=== PATIENT | female | born 1990 | race Caucasian/White ===

== ENCOUNTER 2020-04-27 08:49 | Day surgery (SDCO) | payer OTHER ==
[~2020-04-27 08:49] MED LIST: BACTRIM DS TAB1 EACH PO; KEFLEX250 MG PO; PROMETHEGA12.5 MG/SU PR; ZOFRAN4 MG PO
[2020-04-27 09:49] LABS: BASOPHIL 0.3 % (0-2); EOSINOPHIL 0.4 % (0-5); HCT 46.8 % (37.0-47.0); HGB 14.9 g/dl (12.5-16.0); LYMPHOCYTE 8.8 % (15-48); MCH 26.9 pg (25.0-31.0); MCHC 31.8 g/dL (32.0-36.0); MCV 84.5 fL (78.0-100.0); MONOCYTE 4.2 % (0-12); MPV 9.7 fL (6.0-9.5); NRBC 0; PLT 385 K/uL (150-400); RBC 5.54 M/uL (4.20-5.40); RDW 12.9 % (11.5-14.0)
[2020-04-27 09:59] LABS: NEUTROPHIL 85.8 % (41-80)
[2020-04-27 10:01] LABS: ALBUMIN 3.7 g/dL (3.4-5.0); BILIRUBIN - TOTAL 0.3 mg/dL (0.2-1.0); BUN/CREAT RATIO (CALC) 17.3 RATIO; CREATININE 0.81 mg/dL (0.51-0.95); GLOBULIN (CALCULATION) 4.5 g/dL; POTASSIUM 4.3 mmol/L (3.5-5.1); TOTAL PROTEIN 8.2 g/dL (6.4-8.2)
[2020-04-27 10:33] LABS: BILIRUBIN 1+ mg/dL (NEGATIVE); BLOOD NEGATIVE Ery/uL (NEGATIVE); CLARITY CLEAR (CLEAR); COLOR YELLOW (YELLOW); GLUCOSE (U) NORMAL (NORMAL); LEUKOCYTES TRACE Leu/uL (NEGATIVE); NITRITE NEGATIVE (NEGATIVE); PROTEIN 2+ mg/dL (NEGATIVE); SPECIFIC GRAVITY >=1.030 (1.001-1.030); UROBILINOGEN 0.2 mg/dL (0.2-1.0); pH 6.5 (5.0-9.0)
[2020-04-27 10:43] LABS: LACTIC ACID 1.3 mmol/L (0.4-1.9)
[2020-04-27 10:46] LABS: SQUAMOUS EPITHELIAL CELLS 20-50
[2020-04-27 10:47] LABS: BACTERIA TRACE
[2020-04-27 13:45] LABS: BILIRUBIN NEGATIVE (NEGATIVE); BLOOD NEGATIVE Ery/uL (NEGATIVE); CLARITY CLEAR (CLEAR); COLOR YELLOW (YELLOW); GLUCOSE (U) NORMAL (NORMAL); LEUKOCYTES NEGATIVE Leu/uL (NEGATIVE); NITRITE NEGATIVE (NEGATIVE); PROTEIN NEGATIVE (NEGATIVE); SPECIFIC GRAVITY <=1.005 (1.001-1.030); UROBILINOGEN 0.2 mg/dL (0.2-1.0); pH 5.5 (5.0-9.0)
[2020-04-27 14:11] LABS: HCG (URINE) SCREEN NEGATIVE (NEGATIVE)
[2020-04-27] MEDS ORDERED: PROZAC20 M1 PO (14:28)
[2020-04-27] MEDS ORDERED: AUGMENTIN 875-1 EACH PO (14:28)
[2020-04-27] MEDS ORDERED: COLACE100 MG PO (17:24)
[2020-04-27] MEDS ORDERED: MOTRIN600 MG PO (17:24)
[2020-04-27] MEDS ORDERED: OXY-IR 5MG5 MG PO (17:24)
[2020-04-27] MEDS ORDERED: ACETAMINOPHEN500 M1 PO (17:24)
[2020-04-28 07:06] LABS: BASOPHIL 0.1 % (0-2); EOSINOPHIL 0 % (0-5); HCT 36.1 % (37.0-47.0); HGB 11.6 g/dl (12.5-16.0); MCH 27.1 pg (25.0-31.0); MCHC 32.1 g/dL (32.0-36.0); MCV 84.3 fL (78.0-100.0); MONOCYTE 4.6 % (0-12); MPV 9.9 fL (6.0-9.5); NEUTROPHIL 76.7 % (41-80); NRBC 0; PLT 296 K/uL (150-400); RBC 4.28 M/uL (4.20-5.40); WBC 16.3 K/uL (4.0-10.5)
[2020-04-28 07:31] LABS: BUN/CREAT RATIO (CALC) 13.7 RATIO; CREATININE 0.73 mg/dL (0.51-0.95); POTASSIUM 4.1 mmol/L (3.5-5.1)
== END 2020-04-28 14:32 | disposition home or self-care (01) ==
LOC: FER 08:49 → FMS 12:19
PROVIDERS: Emergency Medicine; Student in an Organized Health Care Education/Training Program; ADMIT Internal Medicine
DX: K35.80 Unspecified acute appendicitis (principal); F32.9 Major depressive disorder, single episode, unspecified; E11.9 Type 2 diabetes mellitus without complications; E66.01 Morbid (severe) obesity due to excess calories; Z68.41 Body mass index [BMI] 40.0-44.9, adult; Z79.899 Other long term (current) drug therapy; Z88.0 Allergy status to penicillin; Z20.822 Contact with and (suspected) exposure to COVID-19
CPT/HCPCS: 36415; 80048; 80053; 81001; 81003; 83036; 83605; 83690; 84703; 85025; 87040; 87088; 94010; 96372; G0378; J1100; J1170; J1200; J1644; J1885; J2250; J2405; J2543; J2704; J2710; J2930; J3010; J7030; J7120; Q9967; U0002

== ENCOUNTER 2020-04-30 12:50 | Emergency (ER) | payer OTHER ==
[~2020-04-30 12:50] MED LIST changes: +ACETAMINOPHEN500 M1 PO; +AUGMENTIN 875-1 EACH PO; +COLACE100 MG PO; +MOTRIN600 MG PO; +OXY-IR 5MG5 MG PO; +PROZAC20 M1 PO
[2020-04-30 15:26] LABS: BASOPHIL 0.4 % (0-2); HCT 39.9 % (37.0-47.0); MCH 27.1 pg (25.0-31.0); MCHC 32.6 g/dL (32.0-36.0); MCV 83.1 fL (78.0-100.0); MONOCYTE 4.9 % (0-12); MPV 9.6 fL (6.0-9.5); NEUTROPHIL 63.2 % (41-80); NRBC 0; PLT 337 K/uL (150-400); RDW 13.1 % (11.5-14.0); WBC 12.9 K/uL (4.0-10.5)
[2020-04-30 15:46] LABS: CREATININE 0.83 mg/dL (0.51-0.95); POTASSIUM 3.4 mmol/L (3.5-5.1)
== END 2020-04-30 17:02 | disposition home or self-care (01) ==
LOC: FER 12:50
PROVIDERS: Nurse Practitioner Family
DX: S76.012A Strain of muscle, fascia and tendon of left hip, initial encounter (principal); Z88.8 Allergy status to other drugs, medicaments and biological substances; X58.XXXA Exposure to other specified factors, initial encounter
CPT/HCPCS: 36415; 80048; 85025; 93971

== ENCOUNTER 2020-12-29 08:01 | Emergency (ER) | payer OTHER ==
[2020-12-29 08:44] LABS: BILIRUBIN NEGATIVE (NEGATIVE); BLOOD 1+ Ery/uL (NEGATIVE); CLARITY CLEAR (CLEAR); COLOR YELLOW (YELLOW); GLUCOSE (U) NORMAL (NORMAL); LEUKOCYTES 2+ Leu/uL (NEGATIVE); NITRITE NEGATIVE (NEGATIVE); PROTEIN TRACE (LOW) mg/dL (NEGATIVE); SPECIFIC GRAVITY 1.025 (1.001-1.030); UROBILINOGEN 0.2 mg/dL (0.2-1.0)
[2020-12-29 09:01] LABS: BACTERIA TRACE; MUCOUS TRACE
[2020-12-29 09:08] LABS: BASOPHIL 0.2 % (0-2); EOSINOPHIL 1.5 % (0-5); HCT 38.8 % (37.0-47.0); HGB 12.8 g/dl (12.5-16.0); LYMPHOCYTE 19.3 % (15-48); MCH 26.8 pg (25.0-31.0); MCV 81.3 fL (78.0-100.0); MONOCYTE 5.4 % (0-12); MPV 9.4 fL (6.0-9.5); NEUTROPHIL 73.3 % (41-80); NRBC 0; PLT 297 K/uL (150-400); RBC 4.77 M/uL (4.20-5.40); RDW 13.1 % (11.5-14.0); WBC 14.9 K/uL (4.0-10.5)
[2020-12-29 09:31] LABS: ALBUMIN 3.7 g/dL (3.4-5.0); BILIRUBIN - TOTAL 0.3 mg/dL (0.2-1.0); BUN/CREAT RATIO (CALC) 17.9 RATIO; CREATININE 0.78 mg/dL (0.51-0.95); GLOBULIN (CALCULATION) 3.9 g/dL; POTASSIUM 4.2 mmol/L (3.5-5.1); TOTAL PROTEIN 7.6 g/dL (6.4-8.2)
[2020-12-29 09:44] LABS: CORONAVIRUS 2019 SARS-COV-2 NEGATIVE (NEGATIVE); INFLUENZA A NAA NEGATIVE (NEGATIVE)
[2020-12-29] MEDS ORDERED: ONDANSETRON ODT4 MG PO (10:34)
[2020-12-29] MEDS ORDERED: IMODIUM2 MG PO (10:34)
[2020-12-29] MEDS ORDERED: NORCO 5-325 TA1 EACH PO (10:41)
== END 2020-12-29 11:01 | disposition home or self-care (01) ==
LOC: FER 08:01
PROVIDERS: Internal Medicine
DX: A08.4 Viral intestinal infection, unspecified (principal); R10.11 Right upper quadrant pain; Z20.822 Contact with and (suspected) exposure to COVID-19; Z88.0 Allergy status to penicillin
CPT/HCPCS: 36415; 71045; 80053; 81001; 83690; 85025; J0696; J1170; J2405; U0002

== ENCOUNTER 2021-01-18 20:31 | Emergency (ER) | payer OTHER ==
[~2021-01-18 20:31] MED LIST changes: +IMODIUM2 MG PO; +NORCO 5-325 TA1 EACH PO; +ONDANSETRON ODT4 MG PO
[2021-01-18] MEDS ORDERED: ETODOLAC ER500 MG PO (21:44)
== END 2021-01-18 22:05 | disposition home or self-care (01) ==
LOC: FER 20:31
DX: S93.491A Sprain of other ligament of right ankle, initial encounter (principal); Z88.0 Allergy status to penicillin; W19.XXXA Unspecified fall, initial encounter; X50.1XXA Overexertion from prolonged static or awkward postures, initial encounter; Y92.89 Other specified places as the place of occurrence of the external cause; Y99.0 Civilian activity done for income or pay
CPT/HCPCS: 73600

== ENCOUNTER 2021-03-29 07:24 | Emergency (ER) | payer OTHER ==
[~2021-03-29 07:24] MED LIST changes: +ETODOLAC ER500 MG PO
[2021-03-29 10:58] LABS: BASOPHIL 0.3 % (0-2); EOSINOPHIL 1.1 % (0-5); HCT 45.2 % (37.0-47.0); HGB 14.7 g/dl (12.5-16.0); LYMPHOCYTE 18.2 % (15-48); MCH 26.9 pg (25.0-31.0); MCHC 32.5 g/dL (32.0-36.0); MCV 82.8 fL (78.0-100.0); MONOCYTE 4.1 % (0-12); MPV 9.4 fL (6.0-9.5); NEUTROPHIL 75.8 % (41-80); NRBC 0; PLT 400 K/uL (150-400); RBC 5.46 M/uL (4.20-5.40); RDW 13.2 % (11.5-14.0); WBC 19.7 K/uL (4.0-10.5)
[2021-03-29 10:59] LABS: HCG (URINE) SCREEN NEGATIVE (NEGATIVE)
[2021-03-29 11:08] LABS: BILIRUBIN NEGATIVE (NEGATIVE); BLOOD 3+ Ery/uL (NEGATIVE); CLARITY CLEAR (CLEAR); COLOR YELLOW (YELLOW); GLUCOSE (U) NORMAL (NORMAL); LEUKOCYTES TRACE Leu/uL (NEGATIVE); NITRITE NEGATIVE (NEGATIVE); PROTEIN NEGATIVE (NEGATIVE); SPECIFIC GRAVITY 1.025 (1.001-1.030); UROBILINOGEN 0.2 mg/dL (0.2-1.0)
[2021-03-29 11:35] LABS: BACTERIA TRACE; MUCOUS TRACE
[2021-03-29 11:38] LABS: ALBUMIN 3.9 g/dL (3.4-5.0); BILIRUBIN - TOTAL 0.4 mg/dL (0.2-1.0); BUN/CREAT RATIO (CALC) 18.7 RATIO; CREATININE 0.75 mg/dL (0.51-0.95); GLOBULIN (CALCULATION) 4.3 g/dL; POTASSIUM 4.5 mmol/L (3.5-5.1); TOTAL PROTEIN 8.2 g/dL (6.4-8.2)
[2021-03-29] MEDS ORDERED: BENTYL10 MG PO (14:29)
[2021-03-29] MEDS ORDERED: ONDANSETRON ODT4 MG PO (14:29)
[2021-03-29] MEDS ORDERED: OXY-IR 5MG5 MG PO (14:51)
== END 2021-03-29 14:44 | disposition home or self-care (01) ==
LOC: FER 07:24
PROVIDERS: Emergency Medicine
DX: R05.9 Cough, unspecified (principal); R10.13 Epigastric pain; R11.2 Nausea with vomiting, unspecified; Z87.891 Personal history of nicotine dependence; Z20.822 Contact with and (suspected) exposure to COVID-19
CPT/HCPCS: 36415; 76705; 80053; 81001; 82728; 83605; 83615; 83690; 84145; 84703; 85025; 86140; J1170; J1885; J2405; Q9967

== ENCOUNTER 2021-08-08 10:03 | Emergency (ER) | payer OTHER ==
[~2021-08-08] VITALS: Ht 170.2 cm; Wt 124.7 kg
[~2021-08-08 10:03] MED LIST changes: +BENTYL10 MG PO
[2021-08-08 11:30] LABS: BASOPHIL 0.4 % (0-2); EOSINOPHIL 0.7 % (0-5); HCT 44.1 % (37.0-47.0); HGB 14.6 g/dl (12.5-16.0); LYMPHOCYTE 16.2 % (15-48); MCH 27.2 pg (25.0-31.0); MCHC 33.1 g/dL (32.0-36.0); MCV 82.3 fL (78.0-100.0); MONOCYTE 6.5 % (0-12); MPV 9.3 fL (6.0-9.5); NEUTROPHIL 75.6 % (41-80); NRBC 0; PLT 471 K/uL (150-400); RBC 5.36 M/uL (4.20-5.40); RDW 12.9 % (11.5-14.0); WBC 21.8 K/uL (4.0-10.5)
[2021-08-08 11:46] LABS: ALBUMIN 3.9 g/dL (3.4-5.0); BILIRUBIN - TOTAL 0.2 mg/dL (0.2-1.0); BUN/CREAT RATIO (CALC) 15.6 RATIO; CREATININE 0.9 mg/dL (0.51-0.95); GLOBULIN (CALCULATION) 4.5 g/dL; POTASSIUM 4.5 mmol/L (3.5-5.1); TOTAL PROTEIN 8.4 g/dL (6.4-8.2)
[2021-08-08 13:51] LABS: BILIRUBIN NEGATIVE (NEGATIVE); BLOOD NEGATIVE Ery/uL (NEGATIVE); CLARITY HAZY (CLEAR); COLOR YELLOW (YELLOW); GLUCOSE (U) NORMAL (NORMAL); LEUKOCYTES 1+ Leu/uL (NEGATIVE); NITRITE NEGATIVE (NEGATIVE); PROTEIN NEGATIVE (NEGATIVE); SPECIFIC GRAVITY 1.015 (1.001-1.030); UROBILINOGEN 0.2 mg/dL (0.2-1.0); pH 6.5 (5.0-9.0)
[2021-08-08 14:00] LABS: URINARY RBC RARE
[2021-08-08 14:01] LABS: BACTERIA TRACE
[2021-08-08] MEDS ORDERED: BENTYL10 MG PO (16:05)
[2021-08-08] MEDS ORDERED: PROTONIX 40MG T40 MG PO (16:05)
== END 2021-08-08 16:28 | disposition home or self-care (01) ==
LOC: FER 10:03
PROVIDERS: Emergency Medicine
DX: K80.50 Calculus of bile duct without cholangitis or cholecystitis without obstruction (principal); Z88.1 Allergy status to other antibiotic agents
CPT/HCPCS: 36415; 76705; 80053; 81001; 82150; 83690; 85025; J1885; J2270; J2405; J7030; Q9967

== ENCOUNTER 2021-12-19 15:24 | Emergency (ER) | payer OTHER ==
[~2021-12-19 15:24] MED LIST changes: +PROTONIX 40MG T40 MG PO
[2021-12-19 19:10] LABS: BASOPHIL 0.3 % (0-2); EOSINOPHIL 1.5 % (0-5); HGB 12.5 g/dl (12.5-16.0); LYMPHOCYTE 31.6 % (15-48); MCH 27.4 pg (25.0-31.0); MCHC 32.9 g/dL (32.0-36.0); MCV 83.2 fL (78.0-100.0); MONOCYTE 4.9 % (0-12); MPV 9.3 fL (6.0-9.5); NEUTROPHIL 61.3 % (41-80); NRBC 0; PLT 291 K/uL (150-400); RBC 4.57 M/uL (4.20-5.40); RDW 13.3 % (11.5-14.0)
[2021-12-19 19:11] LABS: BILIRUBIN NEGATIVE (NEGATIVE); BLOOD 3+ Ery/uL (NEGATIVE); CLARITY CLEAR (CLEAR); COLOR YELLOW (YELLOW); GLUCOSE (U) NORMAL (NORMAL); LEUKOCYTES NEGATIVE Leu/uL (NEGATIVE); NITRITE NEGATIVE (NEGATIVE); PROTEIN TRACE (LOW) mg/dL (NEGATIVE); SPECIFIC GRAVITY >=1.030 (1.001-1.030); UROBILINOGEN 0.2 mg/dL (0.2-1.0)
[2021-12-19 19:26] LABS: BUN/CREAT RATIO (CALC) 13.7 RATIO; CREATININE 0.73 mg/dL (0.51-0.95); POTASSIUM 3.3 mmol/L (3.5-5.1)
[2021-12-19 19:48] LABS: BACTERIA 3+; MUCOUS LARGE
== END 2021-12-19 22:00 | disposition home or self-care (01) ==
LOC: FER 15:24
PROVIDERS: Nurse Practitioner Family
DX: O20.9 Hemorrhage in early pregnancy, unspecified (principal); Z3A.08 8 weeks gestation of pregnancy; Z88.1 Allergy status to other antibiotic agents
CPT/HCPCS: 36415; 76830; 80048; 81001; 84702; 85025